=== PATIENT | male | born 1960 | race Caucasian/White ===

== ENCOUNTER 2017-02-02 16:18 | Inpatient (IN) | payer MEDICAID ==
--- NOTE | 2017-02-02 17:08 | EDM.PDOC ---
ED HPI GENERAL MEDICAL PROBLEM - General Chief Complaint: Lower Extremity Injury/Pain Stated Complaint: LEFT TOE PAIN Time Seen by Provider: 02/02/17 16:38 Source of Information: Reports: Patient History Limitations: Reports: No Limitations - History of Present Illness INITIAL COMMENTS - FREE TEXT/NARRATIVE: History of present illness: [56-year-old male presenting with inflamed toes with some open areas that look like early cellulitis of the dorsal aspect and the tips of several toes. Patient denies any history of diabetes but indicates he does have some nature of neuropathy to his extremities.] Review of systems: As per history of present illness and below otherwise all systems reviewed and negative. Past medical history: As per history of present illness and as reviewed below otherwise noncontributory. Surgical history: As per history of present illness and as reviewed below otherwise noncontributory. Social history: No reported history of drug or alcohol abuse. Family history: As per history of present illness and as reviewed below otherwise noncontributory. Physical exam: HEENT: Atraumatic, normocephalic, pupils reactive, negative for conjunctival pallor or scleral icterus, mucous membranes moist, throat clear, neck supple, nontender, trachea midline. Lungs: Clear to auscultation, breath sounds equal bilaterally, chest nontender. Heart: S1S2, regular, negative for clicks, rubs, or JVD. Abdomen: Soft, nondistended, nontender. Negative for masses or hepatosplenomegaly. Negative for costovertebral tenderness. Pelvis: Stable nontender. Genitourinary: Deferred. Rectal: Deferred. Extremities: Bilateral feet noted to have cellulitic changes specifically to the toes calloused areas with fissures and cracks. Neuro: Awake, alert, oriented. Cranial nerves II through XII unremarkable. Cerebellum unremarkable. Motor and sensory unremarkable throughout. Exam nonfocal. Global assessment is significant for bilateral cellulitis 2 feet that are obviously neuro pathic patient is unaware of any history of diabetes worked up and noted to be positive for diabetes Diagnostics: [CBC, CMP, lactic acid, ABG, globin A1c] Therapeutics: [IV fluid 2 g of Rocephin] Impression: [#1 Diabetes] Plan: [Admit to Dr. Chino] Definitive disposition and diagnosis as appropriate pending reevaluation and review of above. - Related Data Allergies Allergy/AdvReac Type Severity Reaction Status Date / Time No Known Allergies Allergy Verified 02/02/17 16:25 Home Meds: Home Meds Glucosam/Chondr-MSM#6/Manganes [Glucosamine-Chondroitin Sftgl] 2,000 mg PO DAILY 02/02/17 [History] Ibuprofen 200 mg PO TID 02/02/17 [History] Melatonin 10 mg PO DAILY 02/02/17 [History] Past Medical History HEENT History: Reports: None Cardiovascular History: Reports: None Respiratory History: Reports: None Gastrointestinal History: Reports: None Genitourinary History: Reports: None Musculoskeletal History: Reports: None Neurological History: Reports: None Psychiatric History: Reports: None Endocrine/Metabolic History: Reports: None Hematologic History: Reports: None Immunologic History: Reports: None Oncologic (Cancer) History: Reports: None Dermatologic History: Reports: None - Infectious Disease History Infectious Disease History: Reports: Chicken Pox - Past Surgical History Head Surgeries/Procedures: Reports: None HEENT Surgical History: Reports: None Cardiovascular Surgical History: Reports: None Respiratory Surgical History: Reports: None GI Surgical History: Reports: None Male Surgical History: Reports: None Endocrine Surgical History: Reports: None Neurological Surgical History: Reports: None Musculoskeletal Surgical History: Reports: Other (See Below) Oncologic Surgical History: Reports: None Dermatological Surgical History: Reports: None Social & Family History - Tobacco Use Smoking Status *Q: Current Every Day Smoker Years of Tobacco use: 45 Packs/Tins Daily: 0.1 - Caffeine Use Caffeine Use: Reports: None - Recreational Drug Use Recreational Drug Use: No Review of Systems - Review of Systems Review Of Systems: See Below (See history of present illness) ED EXAM, GENERAL - Physical Exam Exam: See Below (History of present illness) Course - Vital Signs Last Recorded V/S: Last Vital Signs Temp 36.2 C 02/02/17 16:27 Pulse 101 H 02/02/17 16:27 Resp 18 02/02/17 16:27 BP 127/102 H 02/02/17 16:27 Pulse Ox 96 02/02/17 16:27 - Orders/Labs/Meds Orders: Active Orders 24 hr Category Date Time Status Sodium Chloride 0.9% [Normal Saline] 1,000 ml Med 02/02/17 17:46 Active IV STAT Medication Orders Sodium Chloride (Normal Saline) 1,000 mls @ 999 mls/hr IV STAT ONE Stop: 10/27/17 18:46 Last Admin: 02/02/17 18:06 Dose: 999 mls/hr Labs: Laboratory Tests 02/02/17 02/02/17 02/02/17 Range/Units 16:52 17:02 17:02 WBC 7.82 (4.0-11.0) K/uL RBC 4.42 L (4.50-5.90) M/uL Hgb 14.3 (13.0-17.0) g/dL Hct 41.6 (38.0-50.0) % MCV 94.1 (80.0-98.0) fL MCH 32.4 H (27.0-32.0) pg MCHC 34.4 (31.0-37.0) g/dL RDW Std Deviation 41.9 (28.0-62.0) fl RDW Coeff of Sue 12 (11.0-15.0) % Plt Count 246 (150-400) K/uL MPV 11.00 (7.40-12.00) fL Neut % (Auto) 70.5 (48.0-80.0) % Lymph % (Auto) 21.7 (16.0-40.0) % [place] % (Auto) 7.0 (0.0-15.0) % Eos % (Auto) 0.5 (0.0-7.0) % Baso % (Auto) 0.3 (0.0-1.5) % Neut # (Auto) 5.5 (1.4-5.7) K/uL Lymph # (Auto) 1.7 (0.6-2.4) K/uL [place] # (Auto) 0.6 (0.0-0.8) K/uL Eos # (Auto) 0.0 (0.0-0.7) K/uL Baso # (Auto) 0.0 (0.0-0.1) K/uL Nucleated RBC % 0.0 /100WBC Nucleated RBCs # 0 K/uL ABG pH (7.35-7.45) ABG pCO2 (35-45) mmHG ABG pO2 (75-100) mmHG ABG HCO3 (22-26) mEq/L ABG Total CO2 ABG Base Excess (-2.0-2.0) Lactate (0.20-2.00) mmol/L Sodium 130 L (136-146) mmol/L Potassium 4.4 (3.5-5.1) mmol/L Chloride 101 (98-110) mmol/L Carbon Dioxide 20 L (21-31) mmol/L BUN 19 (6.0-23.0) mg/dL Creatinine 1.0 (0.6-1.5) mg/dL Est Cr Clr Drug Dosing 92.69 mL/min Estimated GFR (MDRD) > 60.0 ml/min Glucose 678 H* (60-110) mg/dL Hemoglobin A1c (0.0-6.0) % Calcium 9.0 (8.8-10.8) mg/dL Total Bilirubin 0.4 (0.1-1.5) mg/dL AST 21 (5-40) IU/L ALT 33 (8-54) IU/L Alkaline Phosphatase 126 (40-150) Total Protein 7.2 (6.0-8.0) g/dL Albumin 3.7 (3.5-5.0) g/dL Globulin 3.5 (2.0-3.5) g/dL Albumin/Globulin Ratio 1.1 L (1.3-2.8) Amylase 69 (10-90) U/L Lipase 28 (7-80) U/L Urine Color YELLOW Urine Appearance CLEAR Urine pH 5.5 (5.0-8.0) Ur Specific [place] <= 1.005 (1.001-1.035) Urine Protein NEGATIVE (NEGATIVE) mg/dL Urine Glucose (UA) >=1000 (NEGATIVE) mg/dL Urine Ketones NEGATIVE (NEGATIVE) mg/dL Urine Occult Blood NEGATIVE (NEGATIVE) Urine Nitrite NEGATIVE (NEGATIVE) Urine Bilirubin NEGATIVE (NEGATIVE) Urine Urobilinogen 0.2 (<2.0) EU/dL Ur Leukocyte Esterase NEGATIVE (NEGATIVE) Urine RBC 0-1 (0-2/HPF) Urine WBC 0-1 (0-5/HPF) Ur Epithelial Cells RARE (NONE-FEW) Urine Bacteria RARE (NEGATIVE) 02/02/17 02/02/17 02/02/17 Range/Units 17:02 18:03 18:03 WBC (4.0-11.0) K/uL RBC (4.50-5.90) M/uL Hgb (13.0-17.0) g/dL Hct (38.0-50.0) % MCV (80.0-98.0) fL MCH (27.0-32.0) pg MCHC (31.0-37.0) g/dL RDW Std Deviation (28.0-62.0) fl RDW Coeff of Sue (11.0-15.0) % Plt Count (150-400) K/uL MPV (7.40-12.00) fL Neut % (Auto) (48.0-80.0) % Lymph % (Auto) (16.0-40.0) % [place] % (Auto) (0.0-15.0) % Eos % (Auto) (0.0-7.0) % Baso % (Auto) (0.0-1.5) % Neut # (Auto) (1.4-5.7) K/uL Lymph # (Auto) (0.6-2.4) K/uL [place] # (Auto) (0.0-0.8) K/uL Eos # (Auto) (0.0-0.7) K/uL Baso # (Auto) (0.0-0.1) K/uL Nucleated RBC % /100WBC Nucleated RBCs # K/uL ABG pH 7.410 (7.35-7.45) ABG pCO2 36 (35-45) mmHG ABG pO2 77 (75-100) mmHG ABG HCO3 23 (22-26) mEq/L ABG Total CO2 20.2 ABG Base Excess -1.4 (-2.0-2.0) Lactate 0.8 (0.20-2.00) mmol/L Sodium (136-146) mmol/L Potassium (3.5-5.1) mmol/L Chloride (98-110) mmol/L Carbon Dioxide (21-31) mmol/L BUN (6.0-23.0) mg/dL Creatinine (0.6-1.5) mg/dL Est Cr Clr Drug Dosing mL/min Estimated GFR (MDRD) ml/min Glucose (60-110) mg/dL Hemoglobin A1c 15.8 H (0.0-6.0) % Calcium (8.8-10.8) mg/dL Total Bilirubin (0.1-1.5) mg/dL AST (5-40) IU/L ALT (8-54) IU/L Alkaline Phosphatase (40-150) Total Protein (6.0-8.0) g/dL Albumin (3.5-5.0) g/dL Globulin (2.0-3.5) g/dL Albumin/Globulin Ratio (1.3-2.8) Amylase (10-90) U/L Lipase (7-80) U/L Urine Color Urine Appearance Urine pH (5.0-8.0) Ur Specific [place] (1.001-1.035) Urine Protein (NEGATIVE) mg/dL Urine Glucose (UA) (NEGATIVE) mg/dL Urine Ketones (NEGATIVE) mg/dL Urine Occult Blood (NEGATIVE) Urine Nitrite (NEGATIVE) Urine Bilirubin (NEGATIVE) Urine Urobilinogen (<2.0) EU/dL Ur Leukocyte Esterase (NEGATIVE) Urine RBC (0-2/HPF) Urine WBC (0-5/HPF) Ur Epithelial Cells (NONE-FEW) Urine Bacteria (NEGATIVE) Meds: Medications Generic Name Dose Route Start Last Admin Trade Name Freq PRN Reason Stop Dose Admin Sodium Chloride 1,000 mls @ 999 mls/hr 02/02/17 17:46 02/02/17 18:06 Normal Saline IV 02/02/17 18:46 999 mls/hr STAT ONE Administration Discontinued Medications Generic Name Dose Route Start Last Admin Trade Name Freq PRN Reason Stop Dose Admin Ceftriaxone Sodium/Dextrose 2 50 mls @ 100 mls/hr 02/02/17 17:46 02/02/17 18: 06 gm/ Premix IV 02/02/17 18:15 100 mls/hr ONETIME ONE Administration Departure - Departure Time of Disposition: 18:39 Disposition: Admitted As Inpatient 68 Condition: Good Clinical Impression: Diabetes, Cellulitis - Discharge Information Referrals: PCP,None [Primary Care Provider] - Forms: ED Department Discharge - My Orders Last 24 Hours: My Active Orders 02/02/17 17:46 Sodium Chloride 0.9% [Normal Saline] 1,000 ml IV STAT - Assessment/Plan Last 24 Hours: My Active Orders 02/02/17 17:46 Sodium Chloride 0.9% [Normal Saline] 1,000 ml IV STAT
[2017-02-02 17:35] LABS: CHLORIDE,CL 101 mmol/L (98-110); SODIUM,NA 130 mmol/L (136-146)
[2017-02-02] MEDS ORDERED: Sodium Chloride 0.9% 1,000 ML IV ONE (17:46)
[2017-02-02] MEDS ORDERED: cefTRIAXone 2 GM in Premix Bag 1 BAG IV ONE (17:46)
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
[2017-02-02] MEDS ORDERED: Sodium Chloride 0.9% 2.5 ML Syringe FLUSH PRN (20:26)
[2017-02-02] MEDS ORDERED: Bisacodyl 5 MG Tab PO PRN (20:26)
[2017-02-02] MEDS ORDERED: Diphtheria,Pertussis(Acell),Tetanus Vaccine 0.5 ML Syringe IM ONE (20:26)
[2017-02-02] MEDS ORDERED: Sodium Chloride 0.9% 10 ML Syringe FLUSH PRN (20:26)
[2017-02-02] MEDS: Insulin Glargine,Human Rec. Analog 100 Units/ML 3 ML Pen SUBCUT SCH (21:15)
[2017-02-02] MEDS: Piperacillin/Tazobactam 3.375 GM in Sodium Chloride 0.9% 50 ML IV SCH (21:16)
[2017-02-02] MEDS: Lisinopril 10 MG Tab PO SCH (23:33)
[2017-02-02] MEDS ORDERED: LORazepam 2 MG/ML SDV IV PRN (23:42)
[2017-02-03] MEDS: Acetaminophen 325 MG Tab PO PRN ×2 (02:21→23:36)
[2017-02-03] MEDS: Temazepam 15 MG Cap PO PRN ×2 (02:21→23:37)
[2017-02-03] MEDS: Piperacillin/Tazobactam 3.375 GM in Sodium Chloride 0.9% 50 ML IV SCH ×4 (02:21→20:52)
[2017-02-03 06:25] LABS: CHLORIDE,CL 107 mmol/L (98-110); SODIUM,NA 138 mmol/L (136-146)
[2017-02-03] MEDS: Insulin Glargine,Human Rec. Analog 100 Units/ML 3 ML Pen SUBCUT SCH ×2 (06:30→16:58)
[2017-02-03] MEDS: Lisinopril 10 MG Tab PO SCH ×2 (08:32→20:51)
[2017-02-03] MEDS: Enoxaparin 40 MG/0.4 ML Syringe SUBCUT SCH (08:32)
--- NOTE | 2017-02-03 13:57 | PCM.PN ---
- General Info Date of Service: 02/03/17 Subjective Update: He initially refused antihypertensive medicine but today the nurse persuaded him to take his lisinopril - Patient Data Vitals - Most Recent: Last Vital Signs Temp 98.1 F 02/03/17 12:00 Pulse 71 02/03/17 12:00 Resp 20 02/03/17 12:00 BP 139/69 02/03/17 12:00 Pulse Ox 98 02/03/17 12:00 Weight - Most Recent: 78.5 kg I&O - Last 24 Hours: Intake & Output 02/02/17 02/03/17 02/03/17 22:59 06:59 14:59 Intake Total 1250 Output Total 1900 Balance -650 Lab Results Last 24 Hours: Laboratory Results - last 24 hr 02/02/17 02/03/17 02/03/17 Range/Units 20:47 05:10 05:10 WBC 8.13 (4.0-11.0) K/uL RBC 4.19 L (4.50-5.90) M/uL Hgb 13.7 (13.0-17.0) g/dL Hct 39.3 (38.0-50.0) % MCV 93.8 (80.0-98.0) fL MCH 32.7 H (27.0-32.0) pg MCHC 34.9 (31.0-37.0) g/dL RDW Std Deviation 41.3 (28.0-62.0) fl RDW Coeff of Sue 12 (11.0-15.0) % Plt Count 258 (150-400) K/uL MPV 10.90 (7.40-12.00) fL Neut % (Auto) 63.7 (48.0-80.0) % Lymph % (Auto) 27.2 (16.0-40.0) % [place] % (Auto) 7.9 (0.0-15.0) % Eos % (Auto) 1.0 (0.0-7.0) % Baso % (Auto) 0.2 (0.0-1.5) % Neut # (Auto) 5.2 (1.4-5.7) K/uL Lymph # (Auto) 2.2 (0.6-2.4) K/uL [place] # (Auto) 0.6 (0.0-0.8) K/uL Eos # (Auto) 0.1 (0.0-0.7) K/uL Baso # (Auto) 0.0 (0.0-0.1) K/uL Nucleated RBC % 0.0 /100WBC Nucleated RBCs # 0 K/uL Sodium 138 (136-146) mmol/L Potassium 3.8 (3.5-5.1) mmol/L Chloride 107 (98-110) mmol/L Carbon Dioxide 24 (21-31) mmol/L BUN 14 (6.0-23.0) mg/dL Creatinine 0.8 (0.6-1.5) mg/dL Est Cr Clr Drug Dosing 116.02 mL/min Estimated GFR (MDRD) > 60.0 ml/min Glucose 289 H (60-110) mg/dL POC Glucose 355 H (60-110) mg/dL Calcium 9.0 (8.8-10.8) mg/dL Magnesium 1.7 (1.5-2.3) mEq/L Triglycerides 116 (10-190) mg/dL Cholesterol 187 (131-240) mg/dL LDL Cholesterol, Calc 116 (60-180) mg/dL VLDL Cholesterol 23 (5-55) mg/dL HDL Cholesterol 48 (40-80) mg/dL Cholesterol/HDL Ratio 3.9 (3.3-6.0) 02/03/17 02/03/17 Range/Units 06:20 12:04 WBC (4.0-11.0) K/uL RBC (4.50-5.90) M/uL Hgb (13.0-17.0) g/dL Hct (38.0-50.0) % MCV (80.0-98.0) fL MCH (27.0-32.0) pg MCHC (31.0-37.0) g/dL RDW Std Deviation (28.0-62.0) fl RDW Coeff of Sue (11.0-15.0) % Plt Count (150-400) K/uL MPV (7.40-12.00) fL Neut % (Auto) (48.0-80.0) % Lymph % (Auto) (16.0-40.0) % [place] % (Auto) (0.0-15.0) % Eos % (Auto) (0.0-7.0) % Baso % (Auto) (0.0-1.5) % Neut # (Auto) (1.4-5.7) K/uL Lymph # (Auto) (0.6-2.4) K/uL [place] # (Auto) (0.0-0.8) K/uL Eos # (Auto) (0.0-0.7) K/uL Baso # (Auto) (0.0-0.1) K/uL Nucleated RBC % /100WBC Nucleated RBCs # K/uL Sodium (136-146) mmol/L Potassium (3.5-5.1) mmol/L Chloride (98-110) mmol/L Carbon Dioxide (21-31) mmol/L BUN (6.0-23.0) mg/dL Creatinine (0.6-1.5) mg/dL Est Cr Clr Drug Dosing mL/min Estimated GFR (MDRD) ml/min Glucose (60-110) mg/dL POC Glucose 224 H 248 H (60-110) mg/dL Calcium (8.8-10.8) mg/dL Magnesium (1.5-2.3) mEq/L Triglycerides (10-190) mg/dL Cholesterol (131-240) mg/dL LDL Cholesterol, Calc (60-180) mg/dL VLDL Cholesterol (5-55) mg/dL HDL Cholesterol (40-80) mg/dL Cholesterol/HDL Ratio (3.3-6.0) Med Orders - Current: Current Medications Acetaminophen (Tylenol) 650 mg PO Q4H PRN PRN Reason: Pain (Mild 1-3)/fever Last Admin: 02/03/17 02:21 Dose: 650 mg Bisacodyl (Dulcolax) 5 mg PO DAILY PRN PRN Reason: Constipation Enoxaparin Sodium (Lovenox) 40 mg SUBCUT DAILY [facility] Last Admin: 02/03/17 08:32 Dose: 40 mg Gabapentin (Neurontin) 300 mg PO BEDTIME [facility] Piperacillin Sod/Tazobactam (Sod 3.375 gm/ Sodium Chloride) 50 mls @ 100 mls/ hr IV Q6H [facility] Last Admin: 02/03/17 08:33 Dose: 100 mls/hr Vancomycin HCl 1 gm/ Sodium (Chloride) 250 mls @ 166 mls/hr IV Q8H [facility] Last Admin: 02/03/17 06:21 Dose: 166 mls/hr Insulin Aspart (Novolog) 0 unit SUBCUT ACBED EUGENIE PRN Reason: Protocol Insulin Glargine (Lantus Solostar) 20 units SUBCUT BIDAC [facility] Lisinopril (Prinivil) 10 mg PO BID [facility] Last Admin: 02/03/17 08:32 Dose: 10 mg Sodium Chloride (Saline Flush) 10 ml FLUSH ASDIRECTED PRN PRN Reason: Keep Vein Open Sodium Chloride (Saline Flush) 2.5 ml FLUSH ASDIRECTED PRN PRN Reason: Keep Vein Open Temazepam (Restoril) 15 mg PO BEDTIME PRN PRN Reason: Sleep Last Admin: 02/03/17 02:21 Dose: 15 mg Vancomycin HCl (Pharmacy To Dose - Vancomycin) 1 dose .XX ASDIRECTED [facility] Discontinued Medications Diphtheria/Tetanus/Acell Pertussis (Adacel) 0.5 ml IM .ONCE ONE Stop: 02/02/17 20:27 Last Admin: 02/02/17 21:38 Dose: 0.5 ml Ceftriaxone Sodium/Dextrose 2 (gm/ Premix) 50 mls @ 100 mls/hr IV ONETIME ONE Stop: 02/02/17 18:15 Last Admin: 02/02/17 18:06 Dose: 100 mls/hr Sodium Chloride (Normal Saline) 1,000 mls @ 999 mls/hr IV STAT ONE Stop: 02/02/17 18:46 Last Admin: 02/02/17 18:06 Dose: 999 mls/hr Insulin Glargine (Lantus Solostar) 10 units SUBCUT BIDAC [facility] Last Admin: 02/03/17 06:30 Dose: 10 units - Exam General: Alert, Oriented, Cooperative Lungs: Normal Respiratory Effort Psy/Mental Status: Normal Affect Physical Findings Comments:: still with erythema and swelling toes; greatest left second toe. - Problem List & Annotations (1) Diabetic neuropathy SNOMED Code(s): 994232633 Code(s): E11.40 - TYPE 2 DIABETES MELLITUS WITH DIABETIC NEUROPATHY, UNSP Status: Acute Current Visit: Yes (2) Cellulitis SNOMED Code(s): 356815965 Code(s): L03.90 - CELLULITIS, UNSPECIFIED Status: Acute Current Visit: Yes (3) Diabetes SNOMED Code(s): 31306225 Code(s): E11.9 - TYPE 2 DIABETES MELLITUS WITHOUT COMPLICATIONS Status: Acute Current Visit: Yes (4) Homelessness SNOMED Code(s): 58025702 Code(s): Z59.0 - HOMELESSNESS Status: Acute Current Visit: Yes - Problem List Review Problem List Initiated/Reviewed/Updated: Yes - My Orders Last 24 Hours: My Active Orders 02/02/17 20:26 Blood Glucose Check, Bedside [RC] QIDACANDBED Oxygen Therapy [RC] PRN VTE/DVT Education [RC] PER UNIT ROUTINE Vital Signs [RC] Q4H Consult to Diabetic Nurse Specialist [CONS] Routine UA W/MICROSCOPIC [URIN] Routine Acetaminophen [Tylenol] 650 mg PO Q4H PRN Bisacodyl [Dulcolax] 5 mg PO DAILY PRN Sodium Chloride 0.9% [Saline Flush] 10 ml FLUSH ASDIRECTED PRN Sodium Chloride 0.9% [Saline Flush] 2.5 ml FLUSH ASDIRECTED PRN Temazepam [Restoril] 15 mg PO BEDTIME PRN Saline Lock Insert [OM.PC] Routine Resuscitation Status Routine 02/02/17 20:30 Vancomycin Pharmacy to Dose [Pharmacy to Dose - Vancomycin] 1 dose .XX ASDIRECTED 02/02/17 20:36 Vaccines to be Administered [RC] PER UNIT ROUTINE Foot w Cont Lt [MR] Routine Foot w Cont Rt [MR] Routine 02/02/17 21:00 Piperacillin/Tazobactam [Piperacil-Tazobact] 3.375 gm Sodium Chloride 0.9% [ Normal Saline] 50 ml IV Q6H 02/02/17 22:00 Vancomycin [Vancocin] 1 gm Sodium Chloride 0.9% [Normal Saline] 250 ml IV Q8H 02/02/17 22:45 Lisinopril [Prinivil] 10 mg PO BID 02/02/17 23:42 CIWAA Assessment [RC] Q4H Notify Provider [RC] PRN 02/03/17 09:00 Enoxaparin [Lovenox] 40 mg SUBCUT DAILY 02/03/17 13:21 Insulin Glarg,Human.Rec.Analog [LantUS Solostar] 20 units SUBCUT BIDAC 02/03/17 13:30 Insulin Aspart [NovoLOG] See Protocol SUBCUT ACBED 02/03/17 13:45 Gabapentin [Neurontin] 300 mg PO BEDTIME 02/04/17 05:11 BASIC METABOLIC PANEL,BMP [CHEM] AM CBC WITH AUTO DIFF [HEME] AM MAGNESIUM [CHEM] AM 02/05/17 05:11 BASIC METABOLIC PANEL,BMP [CHEM] AM CBC WITH AUTO DIFF [HEME] AM MAGNESIUM [CHEM] AM - Plan Plan:: see orders will need MRI feet when available. As he has prior metal fixation of the left femur, will cancel MRI and request bone scan to check for osteomyelitis. continue present antibiotics increase lantus social security benefits interviewer consult for homelessness. neurontin at for neuropathy. Timbo Luis MD
[2017-02-03] MEDS: Insulin Aspart 100 Units/ML 3 ML Pen SUBCUT SCH ×3 (14:06→20:49)
[2017-02-03] MEDS: Gabapentin 300 MG Cap PO SCH ×2 (14:06→20:51)
[2017-02-04] MEDS: Piperacillin/Tazobactam 3.375 GM in Sodium Chloride 0.9% 50 ML IV SCH ×4 (03:36→20:17)
[2017-02-04 05:43] LABS: CHLORIDE,CL 109 mmol/L (98-110); SODIUM,NA 140 mmol/L (136-146)
[2017-02-04] MEDS: Insulin Glargine,Human Rec. Analog 100 Units/ML 3 ML Pen SUBCUT SCH ×2 (07:25→17:14)
[2017-02-04] MEDS: Insulin Aspart 100 Units/ML 3 ML Pen SUBCUT SCH ×4 (07:26→20:13)
[2017-02-04] MEDS: Enoxaparin 40 MG/0.4 ML Syringe SUBCUT SCH (09:07)
[2017-02-04] MEDS: Lisinopril 10 MG Tab PO SCH ×2 (09:08→20:13)
[2017-02-04] MEDS: Loperamide 2 MG Cap PO PRN ×2 (11:32→17:54)
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
[2017-02-04] MEDS: metroNIDAZOLE 250 MG Tab PO SCH ×2 (13:38→17:54)
[2017-02-04] MEDS: Gabapentin 300 MG Cap PO SCH (20:13)
[2017-02-04] MEDS: Magnesium Oxide 400 MG Tab PO SCH (21:25)
[2017-02-05] MEDS: Piperacillin/Tazobactam 3.375 GM in Sodium Chloride 0.9% 50 ML IV SCH ×4 (03:19→21:15)
[2017-02-05] MEDS: metroNIDAZOLE 250 MG Tab PO SCH ×2 (06:30)
[2017-02-05] MEDS: Insulin Aspart 100 Units/ML 3 ML Pen SUBCUT SCH ×4 (06:30→21:39)
[2017-02-05] MEDS: Insulin Glargine,Human Rec. Analog 100 Units/ML 3 ML Pen SUBCUT SCH ×2 (06:31→17:47)
[2017-02-05 06:33] LABS: CHLORIDE,CL 106 mmol/L (98-110); SODIUM,NA 138 mmol/L (136-146)
[2017-02-05] MEDS ORDERED: Magnesium Sulfate/Water 2 GM in Premix Bag 1 BAG IV ONE (08:19)
[2017-02-05] MEDS: Lisinopril 10 MG Tab PO SCH ×2 (09:07→21:20)
[2017-02-05] MEDS: Magnesium Oxide 400 MG Tab PO SCH ×2 (09:08→21:16)
[2017-02-05] MEDS: Loperamide 2 MG Cap PO PRN ×2 (09:08)
[2017-02-05] MEDS: Enoxaparin 40 MG/0.4 ML Syringe SUBCUT SCH (09:16)
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
--- NOTE | 2017-02-05 15:47 | NM ---
EXAMINATION: Bone scan of the femurs and lower extremities bilaterally. HISTORY: Osteomyelitis COMPARISON: None TECHNIQUE: Anterior of the femurs, anterior, posterior, and lateral images obtained of the lower extr emities and posterior planar images obtained bilaterally following the injection of 23.5 mCi techneti um 99m labeled MDP. FINDINGS: There is periarticular uptake within the region of the mid left femoral diaphysis. There is fairly sy mmetric uptake within the ankles and midfoot bilaterally, likely degenerative in nature. There is a s mall focal area of uptake involving the left second digit distally. IMPRESSION: 1. Tiny focal area of uptake involving the second left digit distally, this could represent osteomyel itis. 2. Abnormal periarticular uptake involving the left femur, plain radiographs are needed for correlati on.
[2017-02-05] MEDS: Gabapentin 300 MG Cap PO SCH (21:16)
[2017-02-06] MEDS: Piperacillin/Tazobactam 3.375 GM in Sodium Chloride 0.9% 50 ML IV SCH ×2 (03:58→09:19)
[2017-02-06 05:29] LABS: CHLORIDE,CL 108 mmol/L (98-110); SODIUM,NA 138 mmol/L (136-146)
[2017-02-06] MEDS: Insulin Glargine,Human Rec. Analog 100 Units/ML 3 ML Pen SUBCUT SCH (07:22)
[2017-02-06] MEDS: Insulin Aspart 100 Units/ML 3 ML Pen SUBCUT SCH ×2 (07:23→11:51)
[2017-02-06] MEDS: Lisinopril 10 MG Tab PO SCH (09:27)
[2017-02-06] MEDS: Enoxaparin 40 MG/0.4 ML Syringe SUBCUT SCH (09:28)
[2017-02-06] MEDS: Magnesium Oxide 400 MG Tab PO SCH (09:28)
[2017-02-06] MEDS: Loperamide 2 MG Cap PO PRN (10:31)
--- NOTE | 2017-02-06 11:21 | PCM.DCSUM1 ---
Discharge Summary - Hospital Course Free Text/Narrative:: Admission Date: 02/02/2017 Discharge Date: 02/06/2017 Admission Diagnosis: 1. Cellulitis feet 2. Hyperglycemia 3. Diabetic neuropathy 3. Elevated Hgb A1c Discharge diagnosis: 1. Cellulitis feet - improving 2. Type 2 DM 3. Peripheral neuropathy Hospital Course: George is a 56 year old homeless male who presented to the ER on 02/02 secondary to concerns of foot infection and pain. He was concerned about possibly losing his toe. The patient was then evaluated and treated for cellulitis with Vancomycin, zosyn. An MRI was initially ordered to rule out osteomyelitis but was cancelled secondary to him having a metal deisy fixation in his femur. Thus, a bone scan was then ordered which did show uptake as per the radiology interpretation indicating possible osteomyelitis. However, given the clinical picture as the patient was afebrile, negative blood cultures, no leukocytosis, no pain, the likelihood of this being the case was low. It is believed that the uptake may have been secondary to another etiology such as osteoarthritis. Given the patients socioeconomic status, he was given a prescription for metformin along with bactrim for his diabetes/ infection. He was advised to follow up with Dr. Tracy, pcp, for further management. He said that he will make the appointment if he is still in town. He was advised to return to seek further attention if he experiences worsening pain, fever, chills, weakness, vomiting. He agreed to the plan. - Discharge Data Discharge Date: 02/06/17 Discharge Disposition: Home, Self-Care 01 Condition: Fair - Patient Summary/Data Consults: Consultations 02/02/17 20:26 Consult to Diabetic Nurse Specialist [CONS] Routine 02/03/17 13:58 Consult to Hotel Baggage Handler [CONS] Routine - Patient Instructions Diet: Diabetic Diet Activity: As Tolerated Notify Provider of: Fever, Increased Pain, Swelling and Redness, Drainage, Nausea and/or Vomiting - Discharge Plan Prescriptions/Med Rec: Sulfamethoxazole/Trimethoprim [Bactrim Ds Tablet] 1 each PO Q12HR 5 Days #10 tablet metFORMIN [Glucophage XR] 1,000 mg PO WITHDINNER 30 Days #30 tab.er Home Medications: Home Meds Sulfamethoxazole/Trimethoprim [Bactrim Ds Tablet] 1 each PO Q12HR 5 Days #10 tablet 02/06/17 [Rx] metFORMIN [Glucophage XR] 1,000 mg PO WITHDINNER 30 Days #30 tab.er 02/06/17 [Rx ] Patient Handouts: Cellulitis, Adult, [id number], Hypertension, [id number], Type 2 Diabetes Mellitus, Adult, [id number] Referrals: Stef Tracy MD [Resident] - 02/15/17 2:30 pm - Discharge Summary/Plan Comment DC Time >30 min.: No Discharge Summary/Plan Comment: Admission Date: 02/02/2017 Discharge Date: 02/06/2017 Admission Diagnosis: 1. Cellulitis feet 2. Hyperglycemia 3. Diabetic neuropathy 3. Elevated Hgb A1c Discharge diagnosis: 1. Cellulitis feet - improving 2. Type 2 DM 3. Peripheral neuropathy Hospital Course: Geroge is a 56 year old homeless male who presented to the ER on 02/02 secondary to concerns of foot infection and pain. He was concerned about possibly losing his toe. The patient was then evaluated and treated for cellulitis with Vancomycin, zosyn. An MRI was initially ordered to rule out osteomyelitis but was cancelled secondary to him having a metal deisy fixation in his femur. Thus, a bone scan was then ordered which did show uptake as per the radiology interpretation indicating possible osteomyelitis. However, given the clinical picture as the patient was afebrile, negative blood cultures, no leukocytosis, no pain, the likelihood of this being the case was low. It is believed that the uptake may have been secondary to another etiology such as osteoarthritis. Given the patients socioeconomic status, he was given a prescription for metformin along with bactrim for his diabetes/ infection. He was advised to follow up with Dr. Tracy, pcp, for further management. He said that he will make the appointment if he is still in town. He was advised to return to seek further attention if he experiences worsening pain, fever, chills, weakness, vomiting. He agreed to the plan. - Patient Data Vitals - Most Recent: Last Vital Signs Temp 36.9 C 02/06/17 08:00 Pulse 67 02/06/17 08:00 Resp 18 02/06/17 08:00 BP 146/83 H 02/06/17 09:27 Pulse Ox 97 02/06/17 08:00 Weight - Most Recent: 73.21 kg I&O - Last 24 hours: Intake & Output 02/05/17 02/06/17 02/06/17 22:59 06:59 14:59 Intake Total 1360 860 50 Output Total 2230 8985 Balance -1390 -765 50 Lab Results - Last 24 hrs: Laboratory Results - last 24 hr 02/05/17 02/05/17 02/05/17 Range/Units 11:28 17:07 21:29 ESR (0-19) mm/hr Sodium (136-146) mmol/L Potassium (3.5-5.1) mmol/L Chloride (98-110) mmol/L Carbon Dioxide (21-31) mmol/L BUN (6.0-23.0) mg/dL Creatinine (0.6-1.5) mg/dL Est Cr Clr Drug Dosing mL/min Estimated GFR (MDRD) ml/min Glucose (60-110) mg/dL POC Glucose 277 H 191 H 219 H (60-110) mg/dL Calcium (8.8-10.8) mg/dL C-Reactive Protein (0.0-0.5) mg/dL 02/06/17 02/06/17 02/06/17 Range/Units 04:39 04:39 05:59 ESR 36 H (0-19) mm/hr Sodium 138 (136-146) mmol/L Potassium 4.1 (3.5-5.1) mmol/L Chloride 108 (98-110) mmol/L Carbon Dioxide 23 (21-31) mmol/L BUN 19 (6.0-23.0) mg/dL Creatinine 0.8 (0.6-1.5) mg/dL Est Cr Clr Drug Dosing 116.02 mL/min Estimated GFR (MDRD) > 60.0 ml/min Glucose 231 H (60-110) mg/dL POC Glucose 180 H (60-110) mg/dL Calcium 8.5 L (8.8-10.8) mg/dL C-Reactive Protein 0.14 (0.0-0.5) mg/dL Med Orders - Current: Current Medications Acetaminophen (Tylenol) 650 mg PO Q4H PRN PRN Reason: Pain (Mild 1-3)/fever Last Admin: 02/03/17 23:36 Dose: 650 mg Bisacodyl (Dulcolax) 5 mg PO DAILY PRN PRN Reason: Constipation Enoxaparin Sodium (Lovenox) 40 mg SUBCUT DAILY [facility] Last Admin: 02/06/17 09:28 Dose: 40 mg Gabapentin (Neurontin) 300 mg PO BEDTIME [facility] Last Admin: 02/05/17 21:16 Dose: 300 mg Piperacillin Sod/Tazobactam (Sod 3.375 gm/ Sodium Chloride) 50 mls @ 100 mls/ hr IV Q6H [facility] Last Admin: 02/06/17 09:19 Dose: 100 mls/hr Vancomycin HCl 1 gm/ Sodium (Chloride) 250 mls @ 166 mls/hr IV Q8H [facility] Last Admin: 02/06/17 05:27 Dose: 166 mls/hr Insulin Aspart (Novolog) 0 unit SUBCUT ACBED [facility] PRN Reason: Protocol Last Admin: 02/06/17 07:23 Dose: 2 unit Insulin Glargine (Lantus Solostar) 20 units SUBCUT BIDAC [facility] Last Admin: 02/06/17 07:22 Dose: 20 unit Lisinopril (Prinivil) 10 mg PO BID [facility] Last Admin: 02/06/17 09:27 Dose: 10 mg Loperamide HCl (Imodium) 2 mg PO Q6H PRN PRN Reason: Diarrhea Last Admin: 02/06/17 10:31 Dose: 2 mg Magnesium Oxide (Magnesium Oxide) 400 mg PO BID [facility] Last Admin: 02/06/17 09:28 Dose: 400 mg Sodium Chloride (Saline Flush) 10 ml FLUSH ASDIRECTED PRN PRN Reason: Keep Vein Open Sodium Chloride (Saline Flush) 2.5 ml FLUSH ASDIRECTED PRN PRN Reason: Keep Vein Open Temazepam (Restoril) 15 mg PO BEDTIME PRN PRN Reason: Sleep Last Admin: 02/03/17 23:37 Dose: 15 mg Vancomycin HCl (Pharmacy To Dose - Vancomycin) 1 dose .XX ASDIRECTED [facility] Discontinued Medications Diphtheria/Tetanus/Acell Pertussis (Adacel) 0.5 ml IM .ONCE ONE Stop: 02/02/17 20:27 Last Admin: 02/02/17 21:38 Dose: 0.5 ml Ceftriaxone Sodium/Dextrose 2 (gm/ Premix) 50 mls @ 100 mls/hr IV ONETIME ONE Stop: 02/02/17 18:15 Last Admin: 02/02/17 18:06 Dose: 100 mls/hr Sodium Chloride (Normal Saline) 1,000 mls @ 999 mls/hr IV STAT ONE Stop: 02/02/17 18:46 Last Admin: 02/02/17 18:06 Dose: 999 mls/hr Magnesium Sulfate 2 gm/ Premix 50 mls @ 50 mls/hr IV ONETIME ONE Stop: 02/05/17 09:18 Last Admin: 02/05/17 09:08 Dose: 50 mls/hr Insulin Glargine (Lantus Solostar) 10 units SUBCUT BIDAC [facility] Last Admin: 02/03/17 06:30 Dose: 10 units Metronidazole (Metronidazole) 500 mg PO Q6H [facility] Last Admin: 02/05/17 06:30 Dose: 500 mg *Q Meaningful Use (DIS) - VTE *Q VTE Criteria *Q: - Stroke *Q Stroke Criteria *Q: - AMI *Q AMI Criteria *Q:
== END 2017-02-06 14:30 | disposition home or self-care (01) | DRG 638 ==
LOC: MW.ED 16:18 → MW.MS 18:50
PROVIDERS: ADMIT Family Medicine; ATTEND Family Medicine
DX: E11.628 Type 2 diabetes mellitus with other skin complications (principal); L03.116 Cellulitis of left lower limb; L03.115 Cellulitis of right lower limb; E11.40 Type 2 diabetes mellitus with diabetic neuropathy, unspecified; R35.8 Other polyuria; R63.1 Polydipsia; F17.200 Nicotine dependence, unspecified, uncomplicated; R19.7 Diarrhea, unspecified; Z59.0 Homelessness; Z79.899 Other long term (current) drug therapy
CPT/HCPCS: 36415; 36600; 78305; 78305-26; 80048; 80053; 80061; 80202; 81001; 82150; 82803; 82962; 83036; 83605; 83690; 83735; 85025; 85652; 86140; 87324; 90471; 90715; 96361; 96365; 99283; 99284-25; A9270-GY; A9503; J0696; J1650; J1815-GY; J2543; J3370; J3475; J7040; J7050